=== PATIENT | male | born 1995 ===

== ENCOUNTER → 2018-02-11 | Outpatient (REF) | payer OTHER ==
[2018-02-11 14:58] LABS: SEMEN APPEARANCE OPAQUE (OPAQUE); SEMEN VISCOSITY LIQUID (LIQUID); WBC CONCENTRATION <=1 M/ml (<=1 M/ml)
[2018-02-11 14:59] LABS: % NORMAL FORMS 6 % (>=4); IMMOTILITY 58 %; NON PROGRESSIVE MOTILITY (c) 10 %; PROGRESSIVE MOTILITY (a) 32 % (>=32); SPERM CONCENTRATION 54.8 M/ml (>=15.0); SPERM# 164.5 M/Ejac (>=39); TOTAL FUNCTIONAL 7.6 M/Ejac.; TOTAL MOTILITY 42 % (>=40); TOTAL PROGRESSIVE SPERM 52.3 M/Ejac.
== END ==
LOC: M LAB REF 14:39
DX: N46.9 Male infertility, unspecified (principal)